=== PATIENT | female | born 1955 | race Caucasian/White ===

== ENCOUNTER 2024-02-17 11:29 | Outpatient (CLI) | payer MEDICARE | END 2024-02-17 11:30 | disposition home or self-care (01) | LOC: CSHCP 11:29 | PROVIDERS: ATTEND Internal Medicine Critical Care Medicine | DX: R06.09 Other forms of dyspnea (principal); J44.9 Chronic obstructive pulmonary disease, unspecified | CPT/HCPCS: 94060; 94664; 94726; 94729; 94760 ==